=== PATIENT | female | born 1965 | race Caucasian/White ===

== ENCOUNTER 2021-09-09 20:09 | Emergency (ER) | payer OTHER, SELFPAY ==
[2021-09-09 20:17] VITALS: BP 112/70; PULSE 63; RESP 18; TEMP 36.9; O2SAT 98; BMI 19.2
[2021-09-09 20:28] LABS: Appearance Urine HAZY; Color Urine YELLOW; Glucose Urine UA NEG (NEG); Leukocyte Esterase Urine NEG (NEG); Nitrite Urine POS (NEG); Specific Gravity - Urine 1.025 (1.005-1.025); UACC Culture Trigger YES; Urine Blood NEG (NEG); Urine Ketones NEG (NEG); Urine Protein NEG (NEG-TRACE)
[2021-09-09 20:34] LABS: Bacteria Urine 4+ /LPF; RBC Urine 0-2 /HPF (0); WBC Urine 0-2 /HPF (0-4)
[2021-09-09 22:17] LABS: MANUAL DIFF FLAG NO
[2021-09-09 22:18] LABS: Basophils Absolute Auto 0.1 X10*3/uL (0.0-0.2); Basophils Percent Auto 0.6 % (0-2); Eosinophils Absolute Auto 0.2 X10*3/uL (0.0-0.4); Eosinophils Percent Auto 1.5 % (0-4); Hematocrit 39.3 % (37.0-47.0); Hemoglobin 13.9 g/dl (12.0-16.0); Imm Gran Abs Auto 0.03 X10*3/uL (0.00-0.03); Imm Gran Pct Auto 0.3 % (0.0-0.4); Lymphocytes Absolute Auto 5.9 X10*3/uL (1.2-4.9); Lymphocytes Percent Auto 52.6 % (20-40); Mean Corpuscular HGB Conc 35.4 g/dl (31.0-35.0); Mean Corpuscular Hemoglobin 32.5 pg (27.0-33.0); Mean Corpuscular Volume 91.8 fL (80.0-98.0); Monocytes Absolute Auto 0.7 X10*3/uL (0.1-1.2); Monocytes Percent Auto 6.6 % (2-11); Neutrophils Absolute Auto 4.3 x10*3/uL (2.0-8.3); Neutrophils Percent Auto 38.4 % (45-73); Platelet Count 174 X10*3/uL (160-400); Red Blood Count 4.28 X10*6/uL (4.20-5.50); Red Cell Distribution Width 12.4 % (11.0-16.0); SCAN SMEAR FLAG 1; White Blood Count 11.3 X10*3/uL (4.8-10.8)
--- NOTE | 2021-09-09 22:24 | ED.GENADULT ---
HPI - General Adult General Chief complaint: General Medical Stated complaint: ?Kidney infection Time Seen by Provider: 09/09/21 22:05 Source: patient Mode of arrival: ambulatory Limitations: no limitations History of Present Illness MD complaint: ?UTI Onset (ago): week(s) (3) Location: back and abdomen Radiation: non-radiation Severity: mild Quality: burning Pain Consistency: intermittent Relieving factors: none Associated symptoms: fever/chills, loss of appetite and weakness Treatments prior to arrival: none Related Data Previous Rx's Medication Instructions Recorded cefuroxime axetil 500 mg tablet 500 mg PO BID 7 days #14 tabs 09/09/21 fluconazole 150 mg tablet 150 mg PO Q3D 2 doses #2 tabs 09/09/21 (Diflucan) ondansetron 4 mg disintegrating 4 mg PO Q8H PRN nausea and 09/09/21 tablet vomiting #20 tabs Allergies Allergy/AdvReac Type Severity Reaction Status Date / Time No Known Allergies Allergy Verified 09/09/21 20:16 [No Known Allergies*] Review of Systems Review of Systems: Constitutional : No Weight loss, pos Fever, No Chills ENT/Mouth : No sore throat, No Rhinorrhea Eyes: No Swelling, No Redness Cardiovascular : No Chest Pain, No SOB, NoEdema Respiratory : No Cough, No Sputum, No Wheezing Gastrointestinal : Positive Nausea, no Vomiting, no Diarrhea, positive abdominal Pain, No Hematochezia, No Melena Genitourinary : pos Dysuria, pos Urinary Frequency, No Hematuria, No Urgency , no vaginal discharge Musculoskeletal : No joint pain, No Myalgias, No Joint Swelling Skin : No Skin Lesions, No rash Neuro : No Weakness, No Numbness, No Dizziness, No Headache Psych : No Anxiety/Panic, No Depression Heme/Lymph: No Bruising, No Lymphadenopathy Endocrine : No Polyuria, No Polydipsia All other systems reviewed and are negative. [facility] Past Medical History Attestation statement: The following information was validated with the patient. Medical History COPD (chronic obstructive pulmonary disease) Fibromyalgia UTI (urinary tract infection) Social History Social History (Updated 09/09/21 @ 22:28 by Carolina Velez DO) Patient Tobacco Use Status: Current everyday Tobacco user Advance Directives: No Advance Directives Information Provided: No Physical Exam ED Vital Signs: Vital Signs - 24 hr 09/09/21 20:17 Temperature 98.5 F Pulse Rate 63 Respiratory Rate 18 Blood Pressure 112/70 Pulse Oximetry 98 Oxygen Delivery Method Room Air BMI result Body Mass Index 19.2 Appearance: Alert. Oriented X3. No acute distress. Eyes: Pupils equal, round and reactive to light. ENT: Pharynx normal. Neck: Normal inspection. Neck supple. CVS: Normal heart rate and rhythm. Pulses normal. Respiratory: No respiratory distress. Breath sounds very faint end exp wheeze Abdomen: Soft and nontender. Skin: Skin warm and dry. Normal skin color. Normal skin turgor. Extremities: No lower extremity edema. No calf ttp Neuro: Oriented X 3. No motor deficit. No sensory deficit. Course Course Course Narrative: LFTS, and lipase mildly elevated could be due to ETOH no abdominal pain to palpation Medical Decision Making MDM Narrative Medical decision making narrative: 55 yo female with hx of UTI, COPD does not have inhalers very faint wheeze will give rescue INH here so she has one, also c/o dysuria, some mild flank pain, hx of UTI - she denies vaginal discharge and denies BV concerns to me. Thinks she has another UTI. Completed amoxicillin course a few weeks ago that didn't work. At this time she is afebrile, not toxic, no vomiting states she can tolerate PO. Will start on ceftin and DC home. Patient is not toxic. Lab Data Result diagrams: 09/09/21 22:13 09/09/21 22:13 Labs: Lab Results 09/09/21 09/09/21 09/09/21 Range/Units 20:16 22:13 22:13 WBC 11.3 H (4.8-10.8) X10*3/uL RBC 4.28 (4.20-5.50) X10*6/uL Hgb 13.9 (12.0-16.0) g/dl Hct 39.3 (37.0-47.0) % MCV 91.8 (80.0-98.0) fL MCH 32.5 (27.0-33.0) pg MCHC 35.4 H (31.0-35.0) g/dl RDW 12.4 (11.0-16.0) % Plt Count 174 (160-400) X10*3/uL MPV 10.0 (9.4-12.3) fL Immature Gran % (Auto) 0.3 (0.0-0.4) % Neut % (Auto) 38.4 L (45-73) % Lymph % (Auto) 52.6 H (20-40) % [place] % (Auto) 6.6 (2-11) % Eos % (Auto) 1.5 (0-4) % Baso % (Auto) 0.6 (0-2) % Lymph # (Auto) 5.9 H (1.2-4.9) X10*3/uL [place]ard # (Auto) 0.7 (0.1-1.2) X10*3/uL Eos # (Auto) 0.2 (0.0-0.4) X10*3/uL Baso # (Auto) 0.1 (0.0-0.2) X10*3/uL Abs Immat Gran (auto) 0.03 (0.00-0.03) X10*3/uL Absolute Neuts (auto) 4.3 (2.0-8.3) x10*3/uL Absolute Nucleated RBC 0.000 (0.0-0.012) X10*3/uL Nucleated RBC % (auto) 0.0 (0.0-0.2) /100WBC Sodium 140 (135-145) mmol/L Potassium 4.0 (3.3-5.1) mmol/L Chloride 107 (96-108) mmol/L Carbon Dioxide 24 (22-29) mmol/L Anion Gap 13 (12-20) BUN 18 H (9-16) mg/dL Creatinine 0.94 (0.5-1.4) mg/dL Estim Creat Clear Calc 50.2 Estimated GFR > 60 Random Glucose 84 (60-115) mg/dL Calcium 9.4 (8.4-10.2) mg/dL Total Bilirubin 0.6 (0.0-1.0) mg/dL AST 32 H (5-31) U/L ALT 46 H (0-31) U/L Alkaline Phosphatase 74 (39-117) U/L Total Protein 6.9 (6.5-8.0) g/dL Albumin 4.0 (3.5-5.0) g/dL Lipase 85 H (8-78) U/L Urine Color YELLOW Urine Appearance HAZY Urine pH 6.0 (5.0-8.0) Ur Specific [place] 1.025 (1.005-1.025) Urine Protein NEG (NEG-TRACE) MG/DL Urine Glucose (UA) NEG (NEG) MG/DL Urine Ketones NEG (NEG) MG/DL Urine Blood NEG (NEG) Urine Nitrite POS H (NEG) Ur Leukocyte Esterase NEG (NEG) Urine RBC 0-2 (0) /HPF Urine WBC 0-2 (0-4) /HPF Ur Squamous Epith Cells NONE /LPF Urine Bacteria 4+ /LPF Discharge Plan Discharge Clinical Impression: UTI (urinary tract infection) Qualifiers: Urinary tract infection type: acute cystitis Hematuria presence: without hematuria Qualified Code(s): N30.00 - Acute cystitis without hematuria Patient Disposition: Home, Self-Care Instructions: Urinary Tract Infection in Women (ED) Additional Instructions: return to ED for any worsening symptoms or concerns can use inhaler 2 puffs every 4 hours as needed for shortness of breath or wheezing very minimal elevation in liver and pancreatic enzymes could be due to alcohol or tylenol repeat with your doctor once antibiotics completed Prescriptions: New fluconazole [Diflucan] 150 mg tablet 150 mg PO Q3D Qty: 2 0RF Rx Instructions: may repeat second dose 72 hrs after first dose if symptoms persist cefuroxime axetil 500 mg tablet 500 mg PO BID 7 Days Qty: 14 0RF ondansetron 4 mg tablet,disintegrating 4 mg PO Q8H PRN (Reason: nausea and vomiting) Qty: 20 0RF Stand Alone Forms: Work/School Release
[2021-09-09 22:32] LABS: Alanine Aminotransferase 46 U/L (0-31); Alkaline Phosphatase 74 U/L (39-117); Anion Gap 13 (12-20); Aspartate Amino Transferase 32 U/L (5-31); Bilirubin Total 0.6 mg/dL (0.0-1.0); Blood Urea Nitrogen 18 mg/dL (9-16); Calcium 9.4 mg/dL (8.4-10.2); Carbon Dioxide 24 mmol/L (22-29); Chloride 107 mmol/L (96-108); Creatinine Clr Calc Pharmacy 50.2; Estimated Glomerular Filt Rate > 60; Glucose Random 84 mg/dL (60-115); Lipase 85 U/L (8-78); Sodium 140 mmol/L (135-145); Total Protein 6.9 g/dL (6.5-8.0)
[2021-09-09] MEDS: Albuterol Sulfate 90 MCG 8 GM INHALER 2 PUFF INHALE (22:48)
== END 2021-09-09 22:53 | disposition home or self-care (01) ==
PROVIDERS: Emergency Provider Emergency Medicine
DX: N30.00 Acute cystitis without hematuria (principal); F17.200 Nicotine dependence, unspecified, uncomplicated
CPT/HCPCS: 36415; 80053; 81001; 83690; 85025; 87086; 87088; 87186; 99282; 99284

== ENCOUNTER 2021-10-31 10:34 | Emergency (ER) | payer OTHER, SELFPAY ==
[2021-10-31 10:41] VITALS: BP 103/67; PULSE 76; RESP 16; TEMP 36; O2SAT 95; BMI 20.1
[2021-10-31 11:02] LABS: MANUAL DIFF FLAG NO
[2021-10-31 11:05] LABS: Basophils Absolute Auto 0.1 X10*3/uL (0.0-0.2); Basophils Percent Auto 0.6 % (0-2); Eosinophils Percent Auto 0.4 % (0-4); Hematocrit 42.8 % (37.0-47.0); Imm Gran Abs Auto 0.03 X10*3/uL (0.00-0.03); Imm Gran Pct Auto 0.3 % (0.0-0.4); Lymphocytes Absolute Auto 3.6 X10*3/uL (1.2-4.9); Lymphocytes Percent Auto 36.6 % (20-40); Mean Corpuscular Hemoglobin 32.5 pg (27.0-33.0); Mean Corpuscular Volume 92.8 fL (80.0-98.0); Mean Platelet Volume 9.9 fL (9.4-12.3); Monocytes Absolute Auto 0.5 X10*3/uL (0.1-1.2); Monocytes Percent Auto 4.8 % (2-11); Neutrophils Absolute Auto 5.6 x10*3/uL (2.0-8.3); Neutrophils Percent Auto 57.3 % (45-73); Platelet Count 187 X10*3/uL (160-400); Red Blood Count 4.61 X10*6/uL (4.20-5.50); Red Cell Distribution Width 12.6 % (11.0-16.0); White Blood Count 9.9 X10*3/uL (4.8-10.8)
[2021-10-31 11:18] LABS: Anion Gap 14 (12-20); Blood Urea Nitrogen 15 mg/dL (9-16); Calcium 9.6 mg/dL (8.4-10.2); Carbon Dioxide 27 mmol/L (22-29); Chloride 102 mmol/L (96-108); Creatinine Clr Calc Pharmacy 46.5; Estimated Glomerular Filt Rate 54; Glucose Random 90 mg/dL (60-115); Potassium 3.7 mmol/L (3.3-5.1); Sodium 139 mmol/L (135-145)
[2021-10-31 12:16] LABS: Cortisol Random 6.2 ug/dL
== END 2021-10-31 16:34 | disposition left against medical advice (07) ==
PROVIDERS: Emergency Provider Emergency Medicine
DX: D35.00 Benign neoplasm of unspecified adrenal gland (principal); Z79.899 Other long term (current) drug therapy
CPT/HCPCS: 36415; 80048; 82533; 85025; 99281; 99283

== ENCOUNTER 2021-11-01 02:50 | Emergency (ER) | payer OTHER, SELFPAY ==
[2021-11-01 03:06] VITALS: BP 131/85; PULSE 72; RESP 18; TEMP 37.1; O2SAT 99; BMI 20.1
[2021-11-01 05:01] VITALS: BP 104/63; PULSE 61; RESP 11; TEMP 36.6; O2SAT 97
--- NOTE | 2021-11-01 05:35 | ED.GENADULT ---
HPI - General Adult General Chief complaint: General Medical Stated complaint: general medical Time Seen by Provider: 11/01/21 05:29 History of Present Illness HPI narrative: Patient is a 56-year-old female has a history of adrenal nodules in the past. Patient had a workup at [facility] in 2014. Subsequently followed up with another CT scan in 2016. Patient worried that the nodule is secreting adrenaline. Presented to the ED earlier but left prior to being evaluated. Came back to be evaluated again. Denies any chest pain shortness breath nausea vomiting. Related Data Previous Rx's Medication Instructions Recorded cefuroxime axetil 500 mg tablet 500 mg PO BID 7 days #14 tabs 09/09/21 fluconazole 150 mg tablet 150 mg PO Q3D 2 doses #2 tabs 09/09/21 (Diflucan) ondansetron 4 mg disintegrating 4 mg PO Q8H PRN nausea and 09/09/21 tablet vomiting #20 tabs Allergies Allergy/AdvReac Type Severity Reaction Status Date / Time No Known Allergies Allergy Verified 10/31/21 12:42 [No Known Allergies*] Review of Systems Review of Systems: No chest pain or shortness breath no nausea no vomiting Yes all other systems are reviewed and are negative PMFSH Past Medical History Attestation statement: The following information was validated with the patient. Medical History COPD (chronic obstructive pulmonary disease) Fibromyalgia UTI (urinary tract infection) Social History Social History (System 10/31/21 @ 12:42 by Gigi Johnson) Patient Tobacco Use Status: Current everyday Tobacco user Advance Directives: No Advance Directives Information Provided: No Physical Exam ED Vital Signs: Vital Signs - 24 hr 11/01/21 03:06 11/01/21 05:01 Temperature 98.8 F 97.9 F Pulse Rate 72 61 Respiratory Rate 18 11 L Blood Pressure 131/85 104/63 Pulse Oximetry 99 97 Oxygen Delivery Method Room Air Room Air BMI result Body Mass Index 20.1 Appearance: Alert. Oriented X3. No acute distress. Eyes: Pupils equal, round and reactive to light. ENT: Pharynx normal. Neck: Normal inspection. Neck supple. No lymph nodes noted. No crepitus CVS: Normal heart rate and rhythm. Pulses normal. Normal S1 and S2 Respiratory: No respiratory distress. Breath sounds normal. No Wheezing. No rales Abdomen: Soft and nontender. No rigidity. No distention. good BS x4 Skin: Skin warm and dry. Normal skin color. Normal skin turgor. Extremities: No lower extremity edema. Neurovascular intact to all extremities. No Lacerations. No Rash Neuro: Oriented X 3. No motor deficit. No sensory deficit. Moving all extermities. No slurred speech Medical Decision Making MDM Narrative Medical decision making narrative: Patient actually had a CT scan in 2014 which showed the adrenal nodule. A subsequent CT scan in 2015 showed no progression. Patient is now 7 years out from the initial CT scan. Explained to patient the adrenal nodule can be followed up on an outpatient basis. It does not need emergent removal at 05:00 o'clock in the morning. Offered to have patient follow-up in [facility]. Patient got very upset eloped from the emergency department. Discharge Plan Discharge Clinical Impression: Adrenal nodule Patient Disposition: Elopement Prescriptions: No Action fluconazole [Diflucan] 150 mg tablet 150 mg PO Q3D Qty: 2 0RF Rx Instructions: may repeat second dose 72 hrs after first dose if symptoms persist cefuroxime axetil 500 mg tablet 500 mg PO BID 7 Days Qty: 14 0RF ondansetron 4 mg tablet,disintegrating 4 mg PO Q8H PRN (Reason: nausea and vomiting) Qty: 20 0RF
--- NOTE | 2021-11-01 05:36 | PC.NURSE ---
After MD evaluation patient was found to be screaming and swearing obscenities in the exam room. Patient asked to be respectful of patients sleeping and not yell at the top of her lungs. Patient stating I don't give a fuck about other patients I want to know where that doctor got his medical license because he's a complete idiot and he should loose his license . Patient asked this RN to show her to the waiting room because she was not waiting for paperwork. Patient walked to the waiting room yelling and swearing the entire way out.
== END 2021-11-01 05:41 | disposition left against medical advice (07) ==
PROVIDERS: Emergency Provider Emergency Medicine Emergency Medical Services
DX: E27.8 Other specified disorders of adrenal gland (principal); F17.200 Nicotine dependence, unspecified, uncomplicated
CPT/HCPCS: 99283

== ENCOUNTER 2023-11-11 13:04 | Emergency (ER) | payer OTHER, SELFPAY ==
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
== END 2023-11-11 13:58 | disposition left against medical advice (07) ==
PROVIDERS: Emergency Provider Emergency Medicine
DX: Z59.02 Unsheltered homelessness (principal)

== ENCOUNTER 2023-11-11 21:23 | Emergency (ER) | payer OTHER, SELFPAY ==
[2023-11-11 21:39] VITALS: BP 133/75; PULSE 73; RESP 18; TEMP 36.5; O2SAT 97; BMI 19.2
[2023-11-11 22:09] LABS: MANUAL DIFF FLAG NO
[2023-11-11 22:11] LABS: Basophils Absolute Auto 0.1 X10*3/uL (0.0-0.2); Basophils Percent Auto 0.9 % (0-2); Eosinophils Absolute Auto 0.2 X10*3/uL (0.0-0.4); Eosinophils Percent Auto 1.7 % (0-4); Hemoglobin 13.1 g/dl (12.0-16.0); Imm Gran Abs Auto 0.02 X10*3/uL (0.00-0.03); Imm Gran Pct Auto 0.2 % (0.0-0.4); Lymphocytes Absolute Auto 4.5 X10*3/uL (1.2-4.9); Lymphocytes Percent Auto 44.6 % (20-40); Mean Corpuscular HGB Conc 35.4 g/dl (31.0-35.0); Mean Corpuscular Hemoglobin 33.2 pg (27.0-33.0); Mean Corpuscular Volume 93.7 fL (80.0-98.0); Mean Platelet Volume 9.9 fL (9.4-12.3); Monocytes Absolute Auto 0.7 X10*3/uL (0.1-1.2); Monocytes Percent Auto 6.6 % (2-11); Neutrophils Absolute Auto 4.7 x10*3/uL (2.0-8.3); Platelet Count 167 X10*3/uL (160-400); Red Blood Count 3.95 X10*6/uL (4.20-5.50); Red Cell Distribution Width 12.7 % (11.0-16.0); White Blood Count 10.1 X10*3/uL (4.8-10.8)
[2023-11-11 22:12] LABS: Appearance Urine Cloudy; Color Urine Yellow; Glucose Urine UA Negative (Negative); Leukocyte Esterase Urine Negative (Negative); Nitrite Urine Negative (Negative); PH 6.5 (5.0-9.0); Specific Gravity - Urine 1.025 (1.005-1.025); Urine Blood Negative (Negative); Urine Ketones Negative (Negative); Urine Protein Negative (Neg-Trace)
[2023-11-11 22:26] LABS: Alanine Aminotransferase 27 U/L (0-31); Albumin Level 3.7 g/dL (3.5-5.0); Alkaline Phosphatase 68 U/L (39-117); Anion Gap 10 (12-20); Aspartate Amino Transferase 22 U/L (5-31); Bilirubin Total 0.5 mg/dL (0.0-1.0); Blood Urea Nitrogen 15 mg/dL (9-16); Calcium 9.1 mg/dL (8.4-10.2); Carbon Dioxide 28 mmol/L (22-29); Chloride 108 mmol/L (96-108); Creatinine Clr Calc Pharmacy 48.5; Estimated Glomerular Filt Rate > 60; Glucose Random 84 mg/dL (60-115); Potassium 3.7 mmol/L (3.3-5.1); Sodium 142 mmol/L (135-145); Total Protein 6.7 g/dL (6.5-8.0)
[2023-11-11 23:41] LABS: Cortisol Random 3.3 ug/dL
[2023-11-12 00:37] VITALS: BP 112/66; PULSE 79; RESP 18; TEMP 36.5; O2SAT 97
--- NOTE | 2023-11-12 02:40 | PC.NURSE ---
pt stormed out of room, yelling that she has been waiting to be seen for 6hrs. very unhappy with lack of care . staff had been in room many times to ask what pt needed d/t pt yelling out. swearing at staff before she walked out.
== END 2023-11-12 02:45 | disposition left against medical advice (07) ==
PROVIDERS: Emergency Provider Emergency Medicine
DX: M54.6 Pain in thoracic spine (principal); F17.200 Nicotine dependence, unspecified, uncomplicated
CPT/HCPCS: 36415; 80053; 81003; 82533; 85025; 99283; 99284

== ENCOUNTER 2024-06-08 08:37 | Outpatient (RCR) | payer OTHER, SELFPAY ==
--- NOTE | 2024-06-09 09:57 | HO.PHP ---
PHP staff member reached out to Martha due to her not showing up for program. Martha disclosed that her car broke down and she is waiting on her son to pick her up. PHP staff member informed Martha that we have a time frame we like to adhere to, in which the latest she can arrive is 9:30 AM. Martha mentioned that she doesn't think she can make that time since her son is currently doing door dash in [place], [place]. PHP staff member assessed for any safety concerns. Martha reported no concerns around SI, plan or intent. Martha will be in attendance to program tomorrow since she voiced she would not be able to make it by the 9:30 AM time frame.
--- NOTE | 2024-06-10 10:25 | HO.PHP ---
Martha did not show up to [facility] to begin programming as scheduled today. [facility] staff attempted to contact Martha several times via [phone], she did not answer, a voicemail was left requesting a call back. [facility] staff also attempted to reach Martha's emergency contact Juancho at [phone]. The darwin. contact did not answer. A wellness check was initiated by [facility] staff with [place] [employer] for Martha to her address on file at 10:20 am.
--- NOTE | 2024-06-10 15:30 | HO.PHP ---
Martha Matta contacted [facility] at roughly 10:45 am after a wellness check was completed by Levi Alvarez since Martha did not show up for programming and she did not answer her phone, and emergency contact did not answer his phone. Martha was very upset that a wellness check was called to her son's home (Pt's address as recorded in her medical record), she proceeded to yell at this headline writer for several minutes, using profanity, insults, threatening to come to [facility] with the police if she was not immediately contacted by PHP glycerin supervisor or the clinician who did her intake. Martha statements included now the police know I'm here , You blew up my spot! , Now my son is going to get kicked out! , I am in protective custody! , Martha also expressed that she is now unsafe since the police announced where she lives. Martha refused to share why she feels she is currently unsafe. Martha was reminded of the safety measures taken by [facility] to ensure her safety, which include a wellness check. Martha was also reminded of the release she signed at intake which allowed PHP to contact her son Juancho, listed as her emergency contact. This headline writer attempted several times to re-explain the information explained to her at intake but Martha was very upset, yelling over headline writer. Veneer Trimmer informed pt that her concerns would be reported to [facility] glycerin supervisor along with her request to speak to spar finisher or PHP glycerin supervisor.
--- NOTE | 2024-06-10 16:03 | HO.PHP ---
At roughly 3:30 pm Martha called the direct line of this medical technical writer asking to speak with Anna the community educator. Martha stated Anna is the one who scheduled her for the intake so she wanted to let her have it . Martha was told that Anna would be in tomorrow morning, medical technical writer attempted to provide her an alternative number for Martha to call and leave her complaint, but Martha refused became upset quickly. Expressed anger over the wellness check again, stated she is not a drug addict or mentally ill , asked why we sent police to her location. This medical technical writer attempted to explain the wellness check was to ensure she was safe since she did not show up to [facility] as scheduled, and did not respond to calls and the voicemail left requesting a call back. Ancient Art Curator made several attempts to explain this and reassure Martha this is standard procedure for all PHP patients and no one called the police on her for drugs or crisis, but to ensure her safety, but Martha remained upset and proceeded to speak badly about [facility], PHP and stated she also contacted [facility] and Let them have it too for recommending PHP. Martha yelled she only came to [facility] because she needed a med appointment, said she was not coming back once she found out she would not receive a med appt, yelled I don't have to call you... I've been there before! , Martha continued without pause, medical technical writer was unable to clarify her concerns or provide suggestions. Martha hung up after stating she will call back tomorrow.
== END 2024-06-08 23:59 | disposition home or self-care (01) ==
LOC: HO.PHPA 08:37
PROVIDERS: Visit Provider Psychiatry & Neurology Psychiatry
DX: F31.32 Bipolar disorder, current episode depressed, moderate (principal); F12.90 Cannabis use, unspecified, uncomplicated; F90.9 Attention-deficit hyperactivity disorder, unspecified type; F43.10 Post-traumatic stress disorder, unspecified; F41.1 Generalized anxiety disorder
CPT/HCPCS: 90791